=== PATIENT | female | born 1930 | race Caucasian/White ===

== ENCOUNTER 2017-02-07 12:14 | Observation (INO) | payer OTHER ==
[2017-02-07] VITALS (7 sets, daily range): BP systolic 137–178; BP diastolic 67–77; PULSE 57–70; RESP 14–20; TEMP 97.7–98.7; O2SAT 95–100
[~2017-02-07] VITALS: Ht 167.6 cm; Wt 70.5 kg
[~2017-02-07 12:14] MED LIST: AMIT10 PO; AMLO5TAB96 PO; CLOP75 PO; FLOV220A INH; LEVO50TA4 PO; PARO20TA PO; SIMV40TA PO; TOPI25 PO
--- NOTE | 2017-02-07 12:36 | PD ---
Physical Exam Time Seen by Provider: 12:34 Narrative 86yo F c/o LUQ abd pain w/ pain radiating to her chest and SOB on and off for the past couple days. Denies symptoms currently, except SOB. Denies fever, vomiting. Patient seen in triage. VS reviewed. Awaiting bed placement. Data Data Last Documented VS Vital Signs Date Time Temp Pulse Resp B/P Pulse Ox O2 Delivery O2 Flow Rate FiO2 02/07/17 12:16 97.7 70 16 138/75 97 Room Air [facility] Supervised Visit with SLOANE: Junie Gautam Feb 07, 2017 12:36
[2017-02-07] MEDS ORDERED: SODIUM CHLORIDE 0.9% FLUSH 10 ML FLUSH IVF PRN (13:30)
--- NOTE | 2017-02-07 13:57 | PD ---
HPI Chief Complaint: Respiratory Symptoms Time Seen by Provider: 13:31 Travel History International Travel<30 days: No Contact w/Intl Traveler<30days: No Traveled to known affect area: No History of Present Illness HPI 86 y/o female presents with one-week history of chest pain and shortness of breath. She denies prior history of this. She presents with her caregiver who help supplement history. She has not had an aspirin yet as she takes Plavix. She is not followed with a police clerk or had recent stress testing or heart workup that she can recall. Quality is pressure. Severity is moderate. Location is left sided. She denies specific modifying factors other than with movement. PFSH Past Medical History Narrative Medical by records Hx Anticoagulant Therapy: Yes (PLAVIX) Arthritis: Yes Autoimmune Disease: No Depression: Yes Cancer: No Cardiovascular Problems: Yes High Cholesterol: Yes Cerebrovascular Accident: Yes Dementia: Yes Diabetes: No Diminished Hearing: Yes Endocrine: No Genitourinary: No Hepatitis: No Hiatal Hernia: No Hypertension: Yes Immune Disorder: No Musculoskeletal: Yes (ARTHRITIS) Neurologic: Yes (TIA'S) Psychiatric: No Reproductive: No Respiratory: Yes (ASBESTOSIS) Immunizations Current: Yes Thyroid Disease: Yes Tetanus Vaccination: > 5 Years Influenza Vaccination: Yes ?: Not Menopausal: Yes : 2 Para: 2 Past Surgical History Narrative Surgical by records AICD: No Section: Yes Cholecystectomy: Yes Eye Surgery: Yes (LIVIER. CATARACT EXTRACT.) Gynecologic Surgery: Yes Hysterectomy: Yes Joint Replacement: No Oral Surgery: Yes (T & A) Pacemaker: No Tonsillectomy: Yes Other Surgery: Yes Social History Alcohol Use: No Tobacco Use: No Substance Use: No Allergies-Medications (Allergen,Severity, Reaction): Coded Allergies: No Known Allergies (Verified , 05/29/16) Reported Meds & Prescriptions Reported Meds & Active Scripts Active Topamax (Topiramate) 25 Mg Tab 25 Mg PO BID PRN Reported Elavil 10 Mg Tab (Amitriptyline HCl) 10 Mg Tab 25 Mg PO HS Flovent Hfa (Fluticasone Propionate) 220 Mcg Aer 1 Puff INH BID Plavix (Clopidogrel Bisulfate) 75 Mg Tab 75 Mg PO DAILY Paroxetine Hcl (Paroxetine HCl) 20 Mg Tab 20 Mg PO DAILY Norvasc (Amlodipine Besylate) 5 Mg Tab 5 Mg PO DAILY Levothyroxine 50 mcg (Levothyroxine Sodium) 50 Mcg Tab 50 Mcg PO DAILY Simvastatin 40 Mg Tab 40 Mg PO HS Review of Systems Except as stated in HPI: all other systems reviewed are Neg Physical Exam Narrative GENERAL: Well-nourished, well-developed patient. SKIN: Warm and dry. HEAD: Normocephalic and atraumatic. EYES: No injection or drainage. ENT: No nasal drainage noted. NECK: Supple, trachea midline. CARDIOVASCULAR: Regular rate and rhythm RESPIRATORY: Breath sounds equal bilaterally at apices. No accessory muscle use. GASTROINTESTINAL: Abdomen soft, non-tender, nondistended. EXTREMITIES: No edema. NEUROLOGICAL: Awake and alert. Motor and sensory grossly within normal limits. Normal speech. Data Data Last Documented VS Vital Signs Date Time Temp Pulse Resp B/P Pulse Ox O2 Delivery O2 Flow Rate FiO2 02/07/17 15:20 61 14 100 Nasal Cannula 2 02/07/17 13:32 98.7 149/70 Orders Electrocardiogram (02/07/17 13:24) B-Type Natriuretic Peptide (02/07/17 13:24) Ckmb (Isoenzyme) Profile (02/07/17 13:24) Complete Blood Count With Diff (02/07/17 13:24) Comprehensive Metabolic Panel (02/07/17 13:24) Magnesium (Mg) (02/07/17 13:24) Prothrombin Time / Inr (Pt) (02/07/17 13:24) Act Partial Throm Time (Ptt) (02/07/17 13:24) Troponin I (02/07/17 13:24) Chest, Single Ap (02/07/17 13:24) Ecg Monitoring (02/07/17 13:24) Bilateral Bp Monitoring (02/07/17 13:24) Iv Access Insert/Monitor (02/07/17 13:24) Oximetry (02/07/17 13:24) Sodium Chloride 0.9% Flush (Ns Flush) (02/07/17 13:30) D-Dimer (02/07/17 13:45) Ct Pulmonary Angiogram (02/07/17 ) Aspirin (Aspirin) (02/07/17 17:00) Admit Order (Ed Use Only) (02/07/17 16:58) Labs Laboratory Tests Test 02/07/17 13:45 White Blood Count 6.9 TH/MM3 Red Blood Count 4.66 MIL/MM3 Hemoglobin 13.5 GM/DL Hematocrit 40.1 % Mean Corpuscular Volume 86.1 FL Mean Corpuscular Hemoglobin 29.0 PG Mean Corpuscular Hemoglobin 33.6 % Concent Red Cell Distribution Width 14.9 % Platelet Count 312 TH/MM3 Mean Platelet Volume 7.4 FL Neutrophils (%) (Auto) 68.1 % Lymphocytes (%) (Auto) 18.9 % Monocytes (%) (Auto) 8.0 % Eosinophils (%) (Auto) 3.8 % Basophils (%) (Auto) 1.2 % Neutrophils # (Auto) 4.7 TH/MM3 Lymphocytes # (Auto) 1.3 TH/MM3 Monocytes # (Auto) 0.5 TH/MM3 Eosinophils # (Auto) 0.3 TH/MM3 Basophils # (Auto) 0.1 TH/MM3 CBC Comment DIFF FINAL Differential Comment Prothrombin Time 10.4 SEC Prothromb Time International 0.9 RATIO Ratio Activated Partial 21.8 SEC Thromboplast Time D-Dimer Quantitative (PE/DVT) 0.65 MG/L FEU Sodium Level 140 MEQ/L Potassium Level 4.3 MEQ/L Chloride Level 105 MEQ/L Carbon Dioxide Level 28.9 MEQ/L Anion Gap 6 MEQ/L Blood Urea Nitrogen 8 MG/DL Creatinine 0.95 MG/DL Estimat Glomerular Filtration 56 ML/MIN Rate Random Glucose 87 MG/DL Calcium Level 9.1 MG/DL Magnesium Level 2.4 MG/DL Total Bilirubin 0.6 MG/DL Aspartate Amino Transf 34 U/L (AST/SGOT) Alanine Aminotransferase 32 U/L (ALT/SGPT) Alkaline Phosphatase 77 U/L Total Creatine Kinase 93 U/L Troponin I LESS THAN 0.02 NG/ML B-Type Natriuretic Peptide 59 PG/ML Total Protein 7.6 GM/DL Albumin 4.1 GM/DL MDM Medical Decision Making Medical Screen Exam Complete: Yes Emergency Medical Condition: Yes Medical Record Reviewed: Yes (pmh confirmed) Interpretation(s) EKG is sinus bradycardia at 55, no ST segment elevation or depression or consecutive T-wave inversion CBC & BMP Diagram 02/07/17 13:45 Last 24 hours Impressions Chest X-Ray 02/07/17 1324 Signed Impressions: Service Date/Time: Tuesday, February 07, 2017 13:47 - CONCLUSION: . 1. No acute abnormality or significant interval change. Jamir Francisco MD CT Angiography 02/07/17 0000 Signed Impressions: Service Date/Time: Tuesday, February 07, 2017 16:10 - CONCLUSION: 1. No pulmonary embolus identified. 2. Pulmonary fibrosis with calcified pleural plaques and pleural thickening most consistent with asbestosis. 3. Atherosclerotic plaquing in the coronary arteries. Guillermo Tejada MD Differential Diagnosis Cardiac, musculoskeletal, pneumothorax, PE Narrative Course Will check blood work, chest x-ray, EKG and reevaluate ed workup no emergent process, patient and daughters agree to chest pain center observation, aware of prior asbestos, will dose with aspirin Diagnosis Primary Impression: Chest pain Qualified Code: R07.9 - Chest pain, unspecified type Admitting Information Admitting Physician Requests: Observation Trish Stratton MD Feb 07, 2017 13:56
[2017-02-07 14:39] LABS: AUTOMATED NEUTROPHIL # 4.7 TH/MM3 (1.8-7.7); BASOPHIL # 0.1 TH/MM3 (0-0.2); BASOPHIL % 1.2 % (0.0-2.0); EOSINOPHIL # 0.3 TH/MM3 (0-0.4); EOSINOPHIL % 3.8 % (0.0-4.0); HEMATOCRIT 40.1 % (35.0-46.0); HEMO FLAGS DIFF FINAL; LYMPH % 18.9 % (9.0-44.0); LYMPHOCYTE # 1.3 TH/MM3 (1.0-4.8); MEAN CELL VOLUME 86.1 FL (80.0-100.0); MEAN CORPUSCULAR HGB CONC 33.6 % (32.0-36.0); NEUT % 68.1 % (16.0-70.0); PLATELET COUNT 312 TH/MM3 (150-450); RED BLOOD COUNT 4.66 MIL/MM3 (4.00-5.30); RED CELL DISTRIBUTION WIDTH 14.9 % (11.6-17.2); WHITE BLOOD COUNT 6.9 TH/MM3 (4.0-11.0)
--- NOTE | 2017-02-07 14:39 | RADRPT ---
EXAM DATE/TIME: 02/07/2017 13:47 [facility] COMPARISON: CHEST PA & LAT, May 29, 2016, 16:16. INDICATIONS : Short of breath. Chest pain. MEDICAL HISTORY : Stroke. Hypertension SURGICAL HISTORY : None. ENCOUNTER: Initial ACUITY: 2 days PAIN SCORE: 3/10 LOCATION: Left chest FINDINGS: Ill-defined wedge shaped parenchymal opacity in the medial left midlung zone is unchanged from prior exam. The mild bilateral interstitial prominence is also stable. Cardiomediastinal contours are withi n normal limits. Bony thorax is intact. CONCLUSION: . 1. No acute abnormality or significant interval change. Jamir Francisco MD on February 07, 2017 at 14:34 Board Certified Radiologist. This report was verified electronically.
[2017-02-07 15:01] LABS: APTT (PATIENT) 21.8 SEC (24.3-30.1); INTERNATIONAL NORMALIZED RATIO 0.9 RATIO; PROTHROMBIN TIME - PATIENT 10.4 SEC (9.8-11.6)
[2017-02-07 15:16] LABS: ALKALINE PHOSPHATASE 77 U/L (45-117); ALT (GPT) 32 U/L (10-53); ANION GAP 6 MEQ/L (5-15); AST (GOT) 34 U/L (15-37); BICARBONATE 28.9 MEQ/L (21.0-32.0); BLOOD UREA NITROGEN 8 MG/DL (7-18); CHLORIDE 105 MEQ/L (98-107); GLOMERULAR FILTRATION RATE 56 ML/MIN (>89); MAGNESIUM 2.4 MG/DL (1.5-2.5); POTASSIUM 4.3 MEQ/L (3.5-5.1); SODIUM (NA) 140 MEQ/L (136-145); TOTAL BILIRUBIN ADULT 0.6 MG/DL (0.2-1.0)
[2017-02-07 15:17] LABS: CREATINE KINASE 93 U/L (26-192)
--- NOTE | 2017-02-07 16:49 | RADRPT ---
EXAM DATE/TIME: 02/07/2017 16:10 [facility] COMPARISON: CT BRAIN W/O CONTRAST, May 29, 2016, 16:24. INDICATIONS : Chest pain and shortness of breath. IV CONTRAST: 50 cc Omnipaque 350 (iohexol) IV RADIATION DOSE: 11.31 CTDIvol (mGy) MEDICAL HISTORY : Dementia. Cardiovascular disease Hypertension. SURGICAL HISTORY : Tonsillectomy. Cholecystectomy. ENCOUNTER: Initial ACUITY: 1 week PAIN SCALE: 1/10 LOCATION: chest TECHNIQUE: Volumetric scanning of the chest was performed using a pulmonary embolism protocol MIP images were re constructed. Using automated exposure control and adjustment of the mA and/or kV according to patien t size, radiation dose was kept as low as reasonably achievable to obtain optimal diagnostic quality images. FINDINGS: The examination is of good diagnostic quality. No pulmonary embolus is identified. There is no significant hilar or mediastinal adenopathy. There is atherosclerotic plaquing in the cor onary arteries. Evaluation of the pulmonary parenchyma demonstrates advanced pulmonary fibrosis. There are numerous c alcified pleural plaques and areas of pleural thickening. Examination would suggest asbestosis. There are degenerative changes throughout the lumbar spine. CONCLUSION: 1. No pulmonary embolus identified. 2. Pulmonary fibrosis with calcified pleural plaques and pleural thickening most consistent with asbe stosis. 3. Atherosclerotic plaquing in the coronary arteries. Guillermo Tejada MD on February 07, 2017 at 16:45 Board Certified Radiologist. This report was verified electronically.
[2017-02-07] MEDS ORDERED: ASPIRIN 325 MG TAB PO ONE (17:00)
--- NOTE | 2017-02-07 17:29 | HHI.HP ---
HPI Primary Care Physician Caren Rangel MD Chief Complaint Chest pain and shortness of breath History of Present Illness This is a 86-year-old female that presents to ED with her family with a complaint of a days of left-sided chest discomfort. She has a hard time describing it otherwise. She is also been short of breath. She has history of asbestosis but does not follow weight control lecturer. Denies history of CAD. Review of Systems Review of systems is limited. Inhalers are assisting with her history. General: Patient denies recent illness. Her family states they noticed a cough last night. Cardiovascular: Has the chest discomfort as mentioned above. Otherwise has a difficult time explaining her symptoms. Respiratory: She has been short of breath. Her family states they noticed a cough last night. GI: Cannot recall being nauseous. Musculoskeletal: Complains of arthritic pain in her left shoulder. Neurovascular: Patient denies numbness, tingling, weakness in extremities. Denies headache. Past Family Social History Allergies: Coded Allergies: No Known Allergies (Verified , 05/29/16) Past Medical History Hypertension, hyperlipidemia, hypothyroidism. Has history of asbestosis, does not follow a weight control lecturer. Denies diabetes and known CAD. Past Surgical History Noncontributory. Reported Medications Reported Meds & Active Scripts Active Topamax (Topiramate) 25 Mg Tab 25 Mg PO BID PRN Reported Elavil 10 Mg Tab (Amitriptyline HCl) 10 Mg Tab 25 Mg PO HS Flovent Hfa (Fluticasone Propionate) 220 Mcg Aer 1 Puff INH BID Plavix (Clopidogrel Bisulfate) 75 Mg Tab 75 Mg PO DAILY Paroxetine Hcl (Paroxetine HCl) 20 Mg Tab 20 Mg PO DAILY Norvasc (Amlodipine Besylate) 5 Mg Tab 5 Mg PO DAILY Levothyroxine 50 mcg (Levothyroxine Sodium) 50 Mcg Tab 50 Mcg PO DAILY Simvastatin 40 Mg Tab 40 Mg PO HS Active Ordered Medications Current Medications Medications (Trade) Dose Ordered Sig/Pieter Route Start Time Stop Time Status Last Admin (NS Flush) 2 ml UNSCH PRN IVF 02/07/17 13:30 (NS Flush) 2 ml UNSCH PRN IVF 02/07/17 17:30 UNV (NS Flush) 2 ml BID IVF 02/07/17 21:00 UNV (Tylenol) 500 mg Q4H PRN PO 02/07/17 17:30 UNV ([place] 7.5-325 Mg) 1 tab Q4H PRN PO 02/07/17 17:30 UNV (Zofran Inj) 4 mg Q6H PRN IV 02/07/17 17:30 UNV (Aspirin) 325 mg DAILY PO 02/08/17 09:00 UNV (Restoril) 15 mg HS PRN PO 02/07/17 17:30 UNV Family History Her family states that her mother at age 62 of myocardial infarction. Social History Patient quit smoking 25 years ago. Physical Exam Vital Signs Vital Signs Date Time Temp Pulse Resp B/P Pulse Ox O2 Delivery O2 Flow Rate FiO2 02/07/17 15:20 61 14 100 Nasal Cannula 2 02/07/17 13:32 98.7 57 15 149/70 100 Nasal Cannula 2 02/07/17 13:32 59 15 99 Room Air 02/07/17 13:32 58 15 178/77 100 Nasal Cannula 2 02/07/17 13:32 98.3 59 15 151/72 100 Nasal Cannula 2 02/07/17 12:16 97.7 70 16 138/75 97 Room Air Physical Exam GENERAL: This is a well-nourished, well-developed patient, in no apparent distress. Patient speaks in clear complete sentences. Patient is pleasant. HEENT: Head is atraumatic and normocephalic. Neck is supple without lymphadenopathy and trachea is midline. No JVD or carotid bruits. CARDIOVASCULAR: Regular rate and rhythm without murmurs, gallops, or rubs. RESPIRATORY: Mild rales in bases. Breath sounds equal bilaterally. No wheezes or rhonchi. Chest wall is tender but does not feel similar to her discomforts.. No use of accessory muscles. GASTROINTESTINAL: Abdomen is nontender, nondistended. Abdomen soft. No obvious pulsatile mass or bruit. No CVA tenderness. Strong femoral pulses bilaterally. Normal bowel sounds in all quadrants. MUSCULOSKELETAL: Patient is moving upper and lower extremities freely. No calf tenderness or edema, no Homans sign. Strong pulses in upper and lower extremities. NEUROLOGICAL: Patient is alert and oriented. Cranial nerves 2-12 are grossly intact. No focal deficits and speech is clear. SKIN: No rash and turgor is normal. Laboratory Laboratory Tests Test 02/07/17 13:45 White Blood Count 6.9 Red Blood Count 4.66 Hemoglobin 13.5 Hematocrit 40.1 Mean Corpuscular Volume 86.1 Mean Corpuscular Hemoglobin 29.0 Mean Corpuscular Hemoglobin 33.6 Concent Red Cell Distribution Width 14.9 Platelet Count 312 Mean Platelet Volume 7.4 Neutrophils (%) (Auto) 68.1 Lymphocytes (%) (Auto) 18.9 Monocytes (%) (Auto) 8.0 Eosinophils (%) (Auto) 3.8 Basophils (%) (Auto) 1.2 Neutrophils # (Auto) 4.7 Lymphocytes # (Auto) 1.3 Monocytes # (Auto) 0.5 Eosinophils # (Auto) 0.3 Basophils # (Auto) 0.1 CBC Comment DIFF FINAL Differential Comment Prothrombin Time 10.4 Prothromb Time International 0.9 Ratio Activated Partial 21.8 Thromboplast Time D-Dimer Quantitative (PE/DVT) 0.65 Sodium Level 140 Potassium Level 4.3 Chloride Level 105 Carbon Dioxide Level 28.9 Anion Gap 6 Blood Urea Nitrogen 8 Creatinine 0.95 Estimat Glomerular Filtration 56 Rate Random Glucose 87 Calcium Level 9.1 Magnesium Level 2.4 Total Bilirubin 0.6 Aspartate Amino Transf 34 (AST/SGOT) Alanine Aminotransferase 32 (ALT/SGPT) Alkaline Phosphatase 77 Total Creatine Kinase 93 Troponin I LESS THAN 0.02 B-Type Natriuretic Peptide 59 Total Protein 7.6 Albumin 4.1 Result Diagram: 02/07/17 1345 02/07/17 1345 Imaging Last 48 hours Impressions Chest X-Ray 02/07/17 1324 Signed Impressions: Service Date/Time: Tuesday, February 07, 2017 13:47 - CONCLUSION: . 1. No acute abnormality or significant interval change. Jamir Francisco MD CT Angiography 02/07/17 0000 Signed Impressions: Service Date/Time: Tuesday, February 07, 2017 16:10 - CONCLUSION: 1. No pulmonary embolus identified. 2. Pulmonary fibrosis with calcified pleural plaques and pleural thickening most consistent with asbestosis. 3. Atherosclerotic plaquing in the coronary arteries. Guillermo Tejada MD Course Initial EKG is sinus rhythm without significant ST segment depressions or elevations. Assessment and Plan Assessment and Plan * Chest pain: Patient will continue to have serial cardiac enzymes and EKGs for ruling out purposes. She has been seen by Dr. Pop of cardiology in the chest pain center and will undergo a Lexiscan if she rules out in the morning. She'll be discharged home if her stress test was nonischemic. * Hypertension: Continue current medication. * Hyperlipidemia: Continue current medication. * Hypothyroidism: Continue current medication. * History of asbestosis: Patient should follow-up with a weight control lecturer. Patient is agreeable to this plan. She is stable at this time. Emil Saxena Feb 07, 2017 17:29
[2017-02-07] MEDS ORDERED: ACETAMINOPHEN/HYDROcodone 325 MG/7.5 MG TAB PO PRN (17:30)
[2017-02-07] MEDS ORDERED: ONDANSETRON HCL 4 MG/2 ML VIAL IV PRN (17:30)
[2017-02-07] MEDS ORDERED: ACETAMINOPHEN 500 MG CPLT PO PRN (17:30)
[2017-02-07] MEDS ORDERED: TEMAZEPAM 15 MG CAP PO PRN (17:30)
[2017-02-07] MEDS ORDERED: SODIUM CHLORIDE 0.9% FLUSH 5 ML FLUSH IVF PRN (17:30)
[2017-02-07] MEDS ORDERED: FLUTI220I INH (17:45)
[2017-02-07] MEDS ORDERED: LEVO50TA4 PO (17:45)
[2017-02-07] MEDS ORDERED: CLOP75TA PO (17:45)
[2017-02-07] MEDS ORDERED: AMLO5TAB2 PO (17:45)
[2017-02-07] MEDS ORDERED: FLUT1SPR5 EACH NARE (17:47)
[2017-02-07] MEDS ORDERED: ALEN1TAB48 PO (17:47)
[2017-02-07] MEDS ORDERED: PARO20TA2 PO (17:49)
[2017-02-07] MEDS ORDERED: SIMV40TA PO (17:49)
[2017-02-07] MEDS ORDERED: CALCTAB94 PO (17:49)
[2017-02-07] MEDS ORDERED: TOPA25TA8 PO (17:49)
[2017-02-07] MEDS ORDERED: IOHEXOL 350 MG/ML 10 ML VIAL (for RAD DIAG) IV ONE (18:18)
[2017-02-07 20:01] LABS: CREATINE KINASE 71 U/L (26-192)
[2017-02-07] MEDS: SODIUM CHLORIDE 0.9% FLUSH 5 ML FLUSH IVF SCH (20:55)
[2017-02-07 22:45] LABS: CREATINE KINASE 69 U/L (26-192)
[2017-02-08 00:11] VITALS: BP 116/61; PULSE 60; RESP 20; TEMP 97.9; O2SAT 95
[2017-02-08 03:54] VITALS: PULSE 54
[2017-02-08] MEDS ORDERED: LEVOTHYROXINE SODIUM 50 MCG TAB PO SCH (07:00)
[2017-02-08 07:49] VITALS: BP 127/70; PULSE 56; RESP 20; TEMP 98; O2SAT 93
[2017-02-08] MEDS ORDERED: CLOPIDOGREL 75 MG TAB PO SCH (09:00)
[2017-02-08] MEDS ORDERED: amLODIPine BESYLATE 5 MG TAB PO SCH (09:00)
[2017-02-08] MEDS ORDERED: PARoxetine HCL 20 MG TAB PO SCH (09:00)
[2017-02-08] MEDS ORDERED: ASPIRIN 325 MG TAB PO SCH (09:00)
[2017-02-08] MEDS ORDERED: REGADENOSON INJ 0.4 MG/5 ML SYR ONE (09:21)
--- NOTE | 2017-02-08 10:40 | RADRPT ---
EXAM DATE/TIME: 02/08/2017 08:37 [facility] COMPARISON: No previous studies available for comparison. INDICATIONS : Left chest pain. Angina. DOSE: 25.9 mCi Tc99m Myoview at stress. 8.2 mCi Tc99m Myoview at rest. 0.4 mg Lexiscan STRESS SYMPTOMS: None. EJECTION FRACTION: 69% MEDICAL HISTORY : Stroke. Hypertension. SURGICAL HISTORY : Hysterectomy. Cholecystectomy. ENCOUNTER: Initial ACUITY: 2 days PAIN SCALE: 2/10 LOCATION: Left chest TECHNIQUE: The patient underwent pharmacologic stress with infusion of prescribed dose. Continuous ECG tracing was monitored during stress. Gated SPECT imaging was performed after stress and conventional SPECT i maging was performed at rest. The examination was performed on a SPECT/CT scanner, both attenuation and non-corrected datasets were reviewed. FINDINGS: DISTRIBUTION: The maximum perfused segment at stress is in the anterolateral wall. PERFUSION STUDY: The pattern of perfusion at stress is within normal limits. GATED STUDY: There is intact wall motion and thickening without hypokinetic or dyskinetic segments. CONCLUSION: No reversible defects observed to suggest acute ischemia. RISK CATEGORY: low Devang Coe Jr., MD on February 08, 2017 at 10:31 Board Certified Radiologist. This report was verified electronically.
[2017-02-08] MEDS: SODIUM CHLORIDE 0.9% FLUSH 5 ML FLUSH IVF SCH (10:53)
--- NOTE | 2017-02-08 10:53 | HHI.DCPOC ---
Discharge Care Plan Diagnosis: (1) Chest pain (2) Hypertension (3) Hyperlipidemia (4) Hypothyroidism (5) Hx of asbestosis Goals to Promote Your Health * To prevent worsening of your condition and complications * To maintain your health at the optimal level Directions to Meet Your Goals Take your medications as prescribed Follow your dietary instruction Follow activity as directed Keep your appointments as scheduled Take your immunizations and boosters as scheduled If your symptoms worsen call your PCP, if no PCP go to Urgent Care Center or Emergency Room Smoking is Dangerous to Your Health. Avoid second hand smoke Call the 24-hour hour crisis hotline for domestic abuse at Emil Saxena Feb 08, 2017 10:53
--- NOTE | 2017-02-08 17:00 | EKG ---
Date Performed: 02/07/2017 Time Performed: 21:25:04 PTAGE: 86 years EKG: Sinus rhythm BORDERLINE LEFT AXIS DEVIATION BORDERLINE ECG Since PREVIOUS TRACING , no significant change noted PREVIOUS TRACIN02/07/2017 19.17 DOCTOR: Lyndsey Lord Interpretating Date/Time 02/08/2017 16:59:28
--- NOTE | 2017-02-08 17:04 | TR ---
Date Performed: 02/08/2017 Time Performed: 09:22:37 DOCTOR: Lyndsey Lord DRUG LIST: CLINICAL HISTORY: REASON FOR TEST: Angina REASON FOR ENDING: OBSERVATION: CONCLUSION: Lexiscan stress test was performed under standard four minute protocol. Radionuclid e was injected one minute prior to ending the test. No electrocardiographic abormalities were present to suggest ischemia. Nuclear imaging and interpretation are pending. COMMENTS:
--- NOTE | 2017-02-08 17:05 | EKG ---
Date Performed: 02/07/2017 Time Performed: 13:45:08 PTAGE: 86 years EKG: SINUS BRADYCARDIA MARKED LEFT AXIS DEVIATION PATTERN CONSISTENT WITH PULMONARY DISEASE ABNO RMAL ECG Since PREVIOUS TRACING , no significant change noted PREVIOUS TRACIN05/29/2016 17.01 DOCTOR: Lyndsey Lord Interpretating Date/Time 02/08/2017 17:04:43
--- NOTE | 2017-02-08 17:06 | EKG ---
Date Performed: 02/07/2017 Time Performed: 19:17:05 PTAGE: 86 years EKG: Sinus rhythm BORDERLINE LEFT AXIS DEVIATION BORDERLINE ECG Since PREVIOUS TRACING , no significant change noted PREVIOUS TRACIN02/07/2017 13.45 DOCTOR: Lyndsey Lord Interpretating Date/Time 02/08/2017 17:05:14
[2017-02-08] MEDS ORDERED: PRAVASTATIN SOD 40 MG TAB PO SCH (21:00)
== END 2017-02-08 11:49 | disposition home or self-care (01) ==
LOC: NEPC 12:14 → NEDA 17:08 → NEPGCP 18:50
PROVIDERS: ADMIT Internal Medicine Interventional Cardiology; ATTEND Internal Medicine Interventional Cardiology
DX: R07.89 Other chest pain (principal); I10 Essential (primary) hypertension; E78.5 Hyperlipidemia, unspecified; E03.9 Hypothyroidism, unspecified; F32.9 Major depressive disorder, single episode, unspecified; M19.90 Unspecified osteoarthritis, unspecified site; Z87.891 Personal history of nicotine dependence; Z79.02 Long term (current) use of antithrombotics/antiplatelets; Z77.090 Contact with and (suspected) exposure to asbestos; Z86.73 Personal history of transient ischemic attack (TIA), and cerebral infarction without residual deficits
CPT/HCPCS: 71010; 71275; 78452; 80053; 82550; 83735; 83880; 84484; 85025; 85379; 85610; 85730; 93005; 93017; 99285; A9502; G0378; J2785; Q9967